=== PATIENT | female | born 1995 | race Caucasian/White ===

== ENCOUNTER 2017-04-30 16:32 | Emergency (ER) | payer OTHER ==
[2017-04-30 16:42] VITALS: BP 119/84; PULSE 78; RESP 16; TEMP 97.5; O2SAT 97
--- NOTE | 2017-04-30 16:58 | EDPHY ---
H & P Time Seen by Provider: 04/30/17 16:38 HPI/ROS: CHIEF COMPLAINT: Upper abdominal pain History by patient HISTORY OF PRESENT ILLNESS: 21-year-old woman presents with 24 hr of increasing upper abdominal pain, nausea but no vomiting and dark watery but nonbloody diarrhea. Patient stated began with upper abdominal discomfort which she localizes to her epigastrium. Pain was coming and going yesterday but has been mostly constant today. There has been no fever chills. She has been able to take fluids and has a decreased appetite but is eating. Her 1-year-old son also has diarrhea currently. She occasionally takes ibuprofen for headaches but otherwise has no chronic medical problems. She denies any back pain, dysuria, urgency frequency or hematuria. Her last period was 1 week ago and she says she is not . REVIEW OF SYSTEMS: As in HPI, and all other systems reviewed and are negative Smoking Status: Never smoked Physical Exam: General Appearance: Alert, well-appearing. Head: normocephalic, atraumatic Eyes: Pupils equal and round, reactive to light, no pallor or injection. Mouth: Mucous membranes moist. Respiratory: Normal, effort, lungs are clear to auscultation. No wheezes, rales or rhonchi. Cardiovascular: Regular rate and rhythm. S1, S2, no murmurs, gallops or rubs appreciated Gastrointestinal: Abdomen is soft and nontender, no masses, bowel sounds normal. Back: No CVA tenderness, no bony tenderness Neurological: Awake, alert and oriented x 3, no pronator drift, normal gait, no pronator drift Skin: Warm and dry, no rashes. Musculoskeletal: No deformities or tenderness. Extremities: full range of motion, no edema, DP2+ bilat Psychiatric: Patient has normal affect, there is no agitation. Constitutional: Initial Vital Signs Temperature (C) 36.4 C 04/30/17 16:38 Heart Rate 78 04/30/17 16:38 Respiratory Rate 16 04/30/17 16:38 Blood Pressure 119/84 H 04/30/17 16:38 O2 Sat (%) 97 04/30/17 16:38 O2 Delivery Mode Room Air Allergies/Adverse Reactions: No Known Allergies Allergy (Unverified 04/30/17 16:43) Home Medications: Medication Instructions Recorded Ondansetron Odt [Zofran Odt 4 mg 4 mg PO Q4 PRN #12 tab 04/30/17 (*)] MDM/Departure - [facility] ED Course/Re-evaluation: 21-year-old woman presents with upper abdominal pain, nausea and diarrhea with normal vital signs and unremarkable exam and a son who also has diarrhea.. Patient appears adequately hydrated and there is no evidence of serious intra- abdominal pathology at this time. We discussed home care, poor insisting hydrated will give patient Zofran for her nausea so that she can continue to maintain her hydration. We also discussed return precautions including but not limited to inability to take oral food or fluids, uncontrolled pain, fever or other worsening. Patient understands and is agreeable to this plan. - Depart Disposition: Home, Routine, Self-Care Clinical Impression: Nausea alone Abdominal pain Qualifiers: Abdominal location: epigastric Qualified Code(s): R10.13 - Epigastric pain Diarrhea Qualifiers: Diarrhea type: unspecified type Qualified Code(s): R19.7 - Diarrhea, unspecified Condition: Good Instructions: Gastroenteritis (ED) Additional Instructions: You were seen by Dr. Analy Kunz today. Drink plenty of fluids. Take Zofran as needed for nausea and vomiting. Take Tylenol as needed for pain. Avoid ibuprofen until your illnesses past. Return for any worsening or new concerns, including but not limited to inability to take oral food or fluids, uncontrolled pain or other concerns.. Prescriptions: Ondansetron Odt [Zofran Odt 4 mg (*)] 4 mg PO Q4 PRN #12 tab PRN Reason: Nausea and vomiting
== END 2017-04-30 17:03 | disposition home or self-care (01) ==
LOC: CED 16:32
DX: R10.13 Epigastric pain (principal); R11.0 Nausea; R19.7 Diarrhea, unspecified